=== PATIENT | male | born 1955 | race Caucasian/White ===

== ENCOUNTER 2016-09-15 22:31 | Emergency (ER) | payer SELFPAY ==
[2016-09-15 22:50] VITALS: TEMP 98.6; BMI 38.5
--- NOTE | 2016-09-15 23:12 | EDPRACDOC ---
- General Information Chief Complaint: Blood Pressure (Problems) Stated Complaint: ELEVATED BP LT SIDED FACE DRAWN ALMOST PASSED OUT Time Seen by Provider: 09/15/16 22:52 Information Source: Patient Mode Of Arrival: Car Home Medications: Home Medications Albuterol Sulfate MDI [Proventil HFA] 2 puff PO Q4-6H PRN 03/23/16 Aspirin/Caffeine [Bc Powder Packet] 2 each PO QAM 03/23/16 Diphenhydramine [Benadryl] 25 mg PO Q6H PRN #30 cap 04/13/16 Loratadine [Claritin] 10 mg PO DAILY #30 tab 04/13/16 Tamsulosin HCl 0.4 mg PO BID 04/13/16 Lisinopril/Hydrochlorothiazide [Zestoretic 20-12.5 mg Tablet] 1 tab PO DAILY # 120 tab 09/15/16 Sulfamethoxazole/Trimethoprim [Bactrim Ds Tablet] 1 tab PO BID #14 tab 09/16/16 Allergies/Adverse Reactions: Allergies Allergy/AdvReac Type Severity Reaction Status Date / Time No Known Allergies Allergy Verified 09/15/16 22:50 - History of Present Illness Onset: YESTERDAY HPI: PT PRESENTS STATING HE HAS BEEN OUT OF HIS BLOOD PRESSURE MEDS FOR THE PAST 3 MONTHS. STATES OVER THE PAST COUPLE OF DAYS HE HAS NOTED INCREASE IN HEADACHE, LEFT FACIAL NUMBNESS AND OVER ALL NOT FEELING WELL. 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 Surgical History: Reports: Other (BACK SURGERY) - Family Medical History Reports: Hypertension, Diabetes, Cancer, Stroke, Cardiac Disorders - Social Medical History Smoking Status: Heavy tobacco smoker (5 or more cigarettes/day or daily pipe/ cigar) EDM Review of Systems - Review of Systems ROS Negative Except as Marked: Yes All systems reviewed and were negative except as marked - Physical Exam Constitutional: Alert Oriented to: Time, Person, Place Last recorded Vital Signs: Last Vital Signs Temp 98.6 F 09/15/16 22:45 Pulse 75 09/15/16 23:02 Resp 16 09/15/16 23:02 BP 208/94 H 09/15/16 23:02 Pulse Ox 94 09/15/16 23:02 Oxygen Pulse Oxygen Saturation 94 O2 Device Room Air Oxygen Flow Rate Fraction of Inspired Oxygen ( FIO2) - HEENT Head: Normal ( normocephalic) Eye Exam: Normal (PERRL, EOMI, Sclera white) Oropharynx: Normal (Pharynx:Moist without exudate,Gums-no swelling) Nose: No Symptoms Reported (septum midline) Neck: Normal (FROM, trachea at midline) - Respiratory/Cardiovascular Respiratory: Normal - CTA (BBS clear to auscultation without adventitious sounds ) Cardiovascular: Normal (RRR without murmur, gallop or rub) - GI Auscultation: Normal (NABS) Palpation: Normal (Soft,No rebound or guarding, non distended) Tenderness: Non tender Gonzales's Sign: Negative Rectal Exam: Deferred - Musculoskeletal Back: Normal (Non-Tender) Extremities: Normal (Normal tone, Pulses 2+ No cyanosis or edema, FROM) - Integumentary Skin: Normal, Warm, Dry Lymphatics: Normal (no adenopathy) - Neurologic Memory Impaired: Normal Motor Function: Normal (Normal tone, Pulses 2+ No cyanosis or edema, FROM) Cranial Nerve: Normal (CN II-X11 intact sensation, strength 5/5) Cerebellar: Normal Mood Description: Normal Perception: Normal - Differential Diagnosis Hypertensive Urgency - Re-evaluation Re-evaluation 1 Re-evaluation Time: 00:41 (BP NOW 148/75, PT STATES HE FEELS MUCH BETTER) - Results 09/15/16 23:10 09/15/16 23:10 - EKG EKG #1 EKG Time: 23:01 -: Yes EKG interpreted by me Rate: bpm: 72 [place]: Normal Rhythm: NSR Block: 1, AVB Hypertrophy: None ST: Normal Decision Time to Discharge: 00:41 - Departure Disposition: Home Condition: Stable Final Diagnosis: Hypertensive urgency UTI (urinary tract infection) Qualifiers: Urinary tract infection type: acute cystitis Hematuria presence: with hematuria Qualified Code(s): N30.01 - Acute cystitis with hematuria Instructions: Urinary Tract Infection in Men (ED), Dysuria, Chronic Hypertension (ED) Education/Counseling Given To: Patient Education/Counseling Given Regarding: Diagnosis, Treatment, Prognosis, Follow Up Referrals: MAHESH ARRIOLA [NonStaff] - One Week Sami Mccormick MD [Staff Physician] - One Week Prescriptions: Lisinopril/Hydrochlorothiazide [Zestoretic 20-12.5 mg Tablet] 1 tab PO DAILY # 120 tab Sulfamethoxazole/Trimethoprim [Bactrim Ds Tablet] 1 tab PO BID #14 tab Additional Instructions: PLEASE MAKE A FOLLOW UP APPOINTMENT WITH PCP. RETURN TO THE ED FOR WORSENING SYMPTOMS OR CONCERNS. TAKE MEDICATION DAILY PRESCRIBED.
[2016-09-15 23:27] LABS: AUTOMATED BASOPHIL 0.1 % (0-2); AUTOMATED EOSINOPHIL 5.1 % (0-5); AUTOMATED LYMPH 29.6 % (17-44); AUTOMATED MONOCYTE 8.8 % (3-10); AUTOMATED NEUTROPHIL 56.4 % (45-76); MPV 8.7 fL (7.4-10.4)
--- NOTE | 2016-09-15 23:31 | DIRPT ---
CLINICAL DATA: 61-year-old male with hypertension EXAM: CHEST 2 VIEW COMPARISON: Radiograph dated 04/29/2016 FINDINGS: Two views of the chest demonstrate emphysematous changes of the lungs. Mild bibasilar atelectasis/ scar. No focal consolidation, pleural effusion, or pneumothorax. Stable cardiac silhouette. The osseous structures appear unremarkable. IMPRESSION: No active cardiopulmonary disease. Electronically Signed By: Jerald Hernandez M.D. On: 09/15/2016 23:29
[2016-09-15 23:41] LABS: PARTIAL THROMB. TIME 27.2 SEC (22-35); PT-INR 1.1
[2016-09-15 23:52] LABS: BLOOD UREA NITROGEN 17 MG/DL (9-20); CALCIUM 9.9 MG/DL (8.4-10.2); CALCULATED OSMOLALITY 271 MOs/Kg (270-290); CHLORIDE 103 mEq/L (98-107); CPK TOTAL WITH POSSIBLE MB 56 IU/L (55-170); GLUCOSE 104 MG/DL (70-99); SODIUM LEVEL 140 mEq/L (137-146); TOTAL PROTEIN 7.3 G/DL (6.3-8.2)
--- NOTE | 2016-09-16 00:07 | DIRPT ---
CLINICAL DATA: 61-year-old male with left facial numbness EXAM: CT HEAD WITHOUT CONTRAST TECHNIQUE: Contiguous axial images were obtained from the base of the skull through the vertex without intravenous contrast. COMPARISON: Head CT dated 04/13/2016 FINDINGS: There is slight prominence of the ventricles and sulci compatible with age-related volume loss. Mild periventricular and deep white matter hypodensities represent chronic microvascular ischemic changes. There is no intracranial hemorrhage. No mass effect or midline shift identified. The visualized paranasal sinuses and mastoid air cells are well aerated. The calvarium is intact. IMPRESSION: No acute intracranial hemorrhage. Mild age-related atrophy and chronic microvascular ischemic disease. If symptoms persist and there are no contraindications, MRI may provide better evaluation if clinically indicated Electronically Signed By: Jerald Hernandez M.D. On: 09/16/2016 00:04
[2016-09-16] MEDS ORDERED: LABETALOL 20 MG/4 ML SYRINGE IV ONE (00:10)
[2016-09-16 00:34] LABS: LEUKOCYTES/URINE NEG (NEGATIVE); NITRITE/URINE NEG (NEGATIVE); RBC/URINE TNTC (0-2); URINE OCCULT BLOOD 1+ (NEG/TRACE); WBC/URINE TNTC (0-2)
[2016-09-16 01:01] VITALS: PULSE 68
[2016-09-16 01:24] VITALS: BP 117/71
== END 2016-09-16 01:22 | disposition home or self-care (01) ==
LOC: ED 22:31
DX: I16.0 Hypertensive urgency (principal); N30.01 Acute cystitis with hematuria; R20.8 Other disturbances of skin sensation
CPT/HCPCS: 36415; 70450; 71020; 80053; 81001; 82550; 83880; 84484; 85025; 85610; 85730; 87077; 87086; 93005; 96374; 99283; J3490